=== PATIENT | female | born 1990 | race African-American/Black ===

== ENCOUNTER 2017-10-03 20:31 | Emergency (ER) | payer OTHER ==
[2017-10-03 20:40] VITALS: BP 114/66; PULSE 79; TEMP 98; BMI 25.4
[2017-10-03] MEDS ORDERED: KETOROLAC TROMETHAMINE 60 MG/2 ML VIAL IM ONE (20:45)
[2017-10-03] MEDS ORDERED: IBUPROFEN 600 MG TABLET (FP) PO ONE ×2 (20:52→20:54)
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
== END 2017-10-03 21:08 | disposition home or self-care (01) ==
LOC: JERFT 20:31
PROC: 3E0233Z Introduction of Anti-inflammatory into Muscle, Percutaneous Approach (ICD-10-PCS; principal; 2017-10-03)
DX: S16.1XXA Strain of muscle, fascia and tendon at neck level, initial encounter (principal); S39.012A Strain of muscle, fascia and tendon of lower back, initial encounter; V49.49XA Driver injured in collision with other motor vehicles in traffic accident, initial encounter; Y92.414 Local residential or business street as the place of occurrence of the external cause; Y93.89 Activity, other specified; Y99.8 Other external cause status
CPT/HCPCS: 99281-25